=== PATIENT | male | born 1980 | race Two or more races ===

== ENCOUNTER 2025-04-04 14:29 | Emergency (ER) | payer BC, SELFPAY ==
[2025-04-04 14:30] VITALS: BMI 44.4
--- NOTE | 2025-04-04 15:40 | XR_ITS ---
Examination: CT abdomen and pelvis without contrast. Coronal 3-D reconstructions. Sagittal 2-D reconstructions. Date and time of exam: 04/04/2025 at 3:59 p.m. INDICATION: Generalized abdominal pain for 3 weeks COMPARISON: CT abdomen and pelvis with contrast 01/27/2021 CTDI: vol (mGy): 17.5 DLP: (mGycm): 1214 Technique: Axial images of the abdomen have been obtained, 3 mm slice thickness Intravenous contrast material has not been administered. Low dose protocols were performed. One or more of the following dose reduction techniques were used; automated exposure control, adjustment of the mA and/or KV according to patient size, use of iterative reconstruction technique. Findings: Lack of intravenous contrast limits evaluation of solid organs, vasculature, and lymph nodes. Lower thorax: No pleural effusions. No airspace consolidation. Heart size is within normal limits. Partially imaged right-sided gynecomastia. Liver: Normal variant Pawel lobe morphology. Otherwise, smooth margins and homogeneous attenuation. Biliary system: No calcified gallstones or findings concerning for acute cholecystitis or biliary ductal obstruction. Spleen: Within normal limits of size. No discrete mass. Pancreas: No contour deforming mass or overt main pancreatic duct dilatation. No evidence for acute inflammation. Adrenal glands: No significant findings. Kidneys: No contour-deforming solid mass. No right renal or ureteral calculi or hydronephrosis. 2 or 3 punctate approximately 2 mm sized calculi are present in the inferior pole of the left kidney. No left ureteral calculi or hydronephrosis. Bladder: Suboptimal assessment due to under distention but no calculus is seen. Pelvic organs: No masses or acute findings. Very mild prostate calcification is noted. Bowel/Peritoneal cavity: Limited assessment without IV and oral contrast as well as segments of underdistention. No contour deforming mass. No obstructive or acute inflammatory changes. Colonic diverticulosis without evidence for acute diverticulitis. No evidence for acute appendicitis. No ascites or free air. No concerning peritoneal thickening. Lymph nodes/retroperitoneum: No pathologically enlarged lymph nodes or other masses. No hematoma or other abnormal collections. Vessels: No abdominal aortic aneurysm. Abdominal/Pelvic wall: Very small fat-containing direct right inguinal hernia. Minimal fat-containing umbilical hernia noted. No acute complications. Musculoskeletal: Multifocal degenerative changes with otherwise no evidence for recent fracture or aggressive lesion. Prominent dextroscoliosis of the partially imaged thoracic spine. IMPRESSION: Negative noncontrast CT for acute abnormality in the abdomen and pelvis. Nonobstructive punctate left renal calculi. Colonic diverticulosis without evidence for acute diverticulitis. No evidence for acute appendicitis.
--- NOTE | 2025-04-04 15:41 | PD.EDRME ---
Rapid Medical Screening Exam RME Arrival date/time: 04/04/25 14:29 44-year-old male with a history of type 2 diabetes, hypertension, presents to the emergency room with a chief complaint of blood in his stool x 3 weeks I have greeted and performed a focused initial assessment of this patient. A comprehensive ED assessment and evaluation of the patient, analysis of all test results, and completion of the medical decision making process will be conducted by additional ED providers. Chief Complaint: Nausea/Vomiting/Diarrhea Time Seen by Provider: 04/04/25 15:11 Vital signs reviewed by provider: Yes Exam: Soft nontender abdomen Clear bilateral lung sounds Clinical Impression: GI bleed/gastroenteritis/anemia
[2025-04-04 16:02] LABS: Basophils # (Auto) 0.1 Thou/mm3 (0.0-0.2); Basophils % (Auto) 1 % (0-2.5); Eosinophils # (Auto) 0.1 Thou/mm3 (0.0-0.5); Eosinophils % (Auto) 1 % (0-10); Hematocrit 48.7 % (41.0-53.0); Hemoglobin 16.0 g/dL (13.5-16.0); Immature Granulocytes Auto 0.07 Thou/mm3 (0.00-0.00); Lymphocytes # (Auto) 3.0 Thou/mm3 (1.0-4.8); Lymphocytes % (Auto) 35 % (10-50); Mean Corpuscular HGB Conc 32.9 g/dl (31.0-37.0); Mean Corpuscular Hemoglobin 29.3 pg (25.0-35.0); Mean Corpuscular Volume 89 fL (80-100); Monocytes # (Auto) 0.7 Thou/mm3 (0.0-0.8); Monocytes % (Auto) 8 % (0-12); Neutrophils # (Auto) 4.7 Thou/mm3 (1.8-7.7); Neutrophils % (Auto) 55 % (37-80); Nucleated Red Blood Cell # 0.00 Thou/mm3 (0.00-0.00); Nucleated Red Blood Cell % 0 /100 WBC (0); Platelet Count 261 Thou/mm3 (140-440); RDW Standard Deviation 44.2 fL (35.1-43.9); Red Blood Count 5.47 Miln/mm3 (4.50-5.90); White Blood Count 8.6 Thou/mm3 (3.8-10.6)
[2025-04-04 16:05] LABS: Collection Type, Urine Clean Catch; WBC,Urine 0 /hpf (0-5)
[2025-04-04 16:11] VITALS: BP 136/86; PULSE 79; RESP 18; TEMP 36.6; O2SAT 98
[2025-04-04 16:14] LABS: INR 1.0 (0.9-1.3); Partial Thromboplastin Time 28.8 Seconds (22.0-36.0); Prothrombin Time 10.4 Seconds (9.0-12.2)
[2025-04-04 16:16] LABS: Bacteria,Urine Rare; Bilirubin,Urine Negative (Negative); Blood,Urine Negative (Negative); Clarity,Urine Clear (Clear/Hazy); Color,Urine Lt-Yellow (Lt Yel-Yel); Glucose, Urine 4+ (Negative); Ketones,Urine Negative (Negative); Leukocyte Esterase,Urine Negative (Negative); Nitrite,Urine Negative (Negative); PH,Urine 6.0 (5.0-7.0); Protein,Urine Negative (Neg - Trace); RBC,Urine 2 /hpf (0-3); Specific Gravity,Urine 1.048 (1.001-1.035); Squamous Epithelial Cell,Urine < 1 /hpf (0-5); Urobilinogen,Urine Negative mg/dL (0.0-1.0)
[2025-04-04 16:24] LABS: Alanine Aminotransferase 11 U/L (10-49); Albumin, Serum 4.7 gm/dL (3.5-5.0); Albumin/Globulin Ratio 2.4 (1.2-2.2); Alkaline Phosphatase 88 U/L (46-116); Anion Gap 9 (7-16); Aspartate Amino Transferase 15 U/L (0-34); BUN/Creatinine Ratio 13 Ratio (12-20); Bilirubin,Total 0.4 mg/dL (0.3-1.2); Blood Urea Nitrogen 10 mg/dL (9-23); Calcium 9.2 mg/dL (8.3-10.6); Calcium (Corrected) 9.2 mg/dL (8.5-10.1); Carbon Dioxide 25.1 mMol/L (20.0-31.0); Chloride 107 mMol/L (98-107); Creatinine (Component) 0.8 mg/dL (0.6-1.3); Estimated Creatinine Clearance 150.0 mL/min (>60); Globulin 2.0 gm/dL (2.3-3.5); Glucose 165 mg/dL (74-106); Lipase 48 U/L (12-53); Osmolality,Calculated 284 (275-295); Potassium 4.2 mMol/L (3.4-5.1); Sodium 141 mMol/L (136-145); Total Protein 6.7 gm/dL (5.7-8.2); eGFR > 60 See Note
[2025-04-04 17:44] VITALS: BP 125/89; PULSE 78; RESP 16; TEMP 36.6; O2SAT 99
--- NOTE | 2025-04-04 18:24 | PD.EDNV ---
Nausea/Vomit./Diarrhea-RME/HPI General Chief complaint: Nausea/Vomiting/Diarrhea Stated complaint: DIARRHEA x 3 WEEKS, SENT BY PMD Time Seen by Provider: 04/04/25 15:11 Arrival date/time: 04/04/25 14:29 44-year-old male patient with significant history of hypertension, diabetes mellitus, currently taking metformin, glipizide, came in for evaluation regarding diarrhea. Patient is having diarrhea for the last 3 weeks, at least 4 times per day nonbloody, associated with abdominal discomfort. Patient denies any fever denies any vomiting denies any other complaints. No medication was taken prior to ER visit. RME / HPI RME / HPI Narrative: 04/04/25 14:29 44-year-old male with a history of type 2 diabetes, hypertension, presents to the emergency room with a chief complaint of blood in his stool x 3 weeks I have greeted and performed a focused initial assessment of this patient. A comprehensive ED assessment and evaluation of the patient, analysis of all test results, and completion of the medical decision making process will be conducted by additional ED providers. Exam: Soft nontender abdomen Clear bilateral lung sounds Impression: GI bleed/gastroenteritis/anemia Related Data Home Medications ?Medication ?Instructions ?Recorded ?Confirmed glipizide 5 mg tablet 5 mg PO BID 03/29/19 06/01/21 metformin 1,000 mg tablet 1,000 mg PO BID 03/29/19 06/01/21 losartan 50 mg tablet 50 mg PO QDAY 06/01/21 06/01/21 semaglutide 1 mg/dose (4 mg/3 mL) 1 mg subcut 06/01/21 subcutaneous pen injector (Ozempic) Previous Rx's ?Medication ?Instructions ?Recorded azithromycin 500 mg tablet See Rx Instructions PO .COMPLEX #3 04/04/25 (Zithromax) tabs Allergies Allergy/AdvReac Type Severity Reaction Status Date / Time No Known Allergies Allergy Verified 04/04/25 14:32 Review of Systems Review of Systems Narrative Review of Systems: Review of system reviewed and within normal limits except mentioned in HPI ED Exam Narrative Physical exam: VITAL SIGNS: Reviewed. GENERAL APPEARANCE: Alert and interactive, follows commands, no acute distress, HEAD AND FACE: Non-traumatic. ENT: PERRL, pink conjunctivitis, eyelid no trauma, Mucous membrane moist. NECK: Supple, nontender, no nuchal rigidity. CHEST: No tenderness, no crepitus, no paradoxical movement, no retractions. LUNGS: Clear, well ventilated, symmetric, no rales, no wheezing, no ronchi, no stridor, good breath sounds bilaterally. HEART: Regular rate, regular rhythm, no murmur, no gallops. ABDOMEN: Soft, positive bowel sounds, nondistended, no guarding, nontender, no rebound, no masses, RECTAL: Deferred. GENITAL: Deferred. NEUROLOGICAL: Gross motor function intact sensory function intact, Appropriate for age. MUSCULOSKELETAL: low back nontender, full range of motion. EXTREMITIES: Nontender, full range of motion. SKIN: Color pink, dry, no rash, no lacerations, no abrasions, no contusions. LYMPHATICS: Deferred. Course Quality Measures none Orders Category Date Time Status CT abdomen pelvis wo con Stat Exams 04/04/25 15:40 Completed CBC Stat Lab 04/04/25 15:47 Completed CMP [Comprehensive Metabolic Panel] Stat Lab 04/04/25 15:47 Completed Lipase Stat Lab 04/04/25 15:47 Completed PT [Prothrombin Time with INR] Stat Lab 04/04/25 15:47 Completed PTT [Partial Thromboplastin Time] Stat Lab 04/04/25 15:47 Completed Type and Screen Stat Lab 04/04/25 15:47 Completed UA [Urinalysis] Stat Lab 04/04/25 15:55 Completed Urine Culture Stat Lab 04/04/25 15:55 Received Azithromycin Po [Zithromax PO] Med 04/04/25 18:24 Once 500 mg PO X1 ONE Vital Signs Vital signs: Vital Signs Temperature 98 F 04/04/25 16:11 Pulse Rate 79 04/04/25 16:11 Respiratory Rate 18 04/04/25 16:11 Blood Pressure 136/86 H 04/04/25 16:11 Pulse Oximetry (%) 98 04/04/25 16:11 Oxygen Delivery Method Room Air 04/04/25 16:11 Nausea/Vomiting/Diarrhea MDM Narrative MDM Narrative:: 44-year-old male patient with significant history of hypertension, diabetes mellitus, currently taking metformin, glipizide, came in for evaluation regarding diarrhea. Patient is having diarrhea for the last 3 weeks, at least 4 times per day nonbloody, associated with abdominal discomfort. Patient denies any fever denies any vomiting denies any other complaints. No medication was taken prior to ER visit. Patient's workup today all came back unremarkable including CT scan of the abdomen and pelvis. Patient will be started on azithromycin for gastroenteritis. I advised the patient to follow-up closely with PCP if the antibiotic will not work. Patient probably is having diarrhea related to metformin. Currently patient stable for discharge home. Patient appears nontoxic and hemodynamically stable .Decision to discharge the patient. The patient/family was given an opportunity to ask questions and understood their discharge instructions. Discharge instructions specifically included follow up provider and time frame, current and/or new medications and possible side effects, indications for sooner follow up or return to the emergency department, and the expected course of current diagnosis. Patient reports feeling better as well and giving evidence of significant clinical improvement, I believe patient is now a candidate for discharge. Patient data External records reviewed:: None Clinical information provided by:: patient Social determinants that could affect healthcare access:: none Patient has the following chronic illnesses:: Diabetes hypertension How is presenting disease/condition affected by chronic disease/condition?: exacerbated by Evaluation data The following diagnostics were reviewed and interpreted by me:: lab results and radiology exam(s) Lab and/or radiology exams considered but not ordered:: None Interpretation Summary: See MDM Medications / Prescriptions Medications / Prescriptions considered but not ordered:: None Medication administrations:: Medication Administration History Discontinued Medications Azithromycin (Azithromycin 250 Mg Tablet) 500 mg PO X1 ONE Stop: 04/04/25 18:25 Zithromax Consultations Consultation(s) initiated? (list below): No Diagnosis Nausea Differential Diagnosis: food poisoning, gastroenteritis and dehydration Most likely diagnosis given after review of the tests above:: Gastroenteritis Admission Indicated Admission indicated?: not indicated Admission Request Was there a request for admission?: No Disposition Plan Disposition Plan: Discharge Discharge Attestation Discharge Attestation: The patient and all family members were given an opportunity to ask questions and understood the discharge instructions. Discharge instructions specifically effects, indications for sooner follow up or return to the emergency department, and the expected course of current diagnosis. Patient condition: Stable Discharge Plan Plan Patient Disposition: HOME (Self Care) Discharge Disposition comment: Stable Prescriptions/Referrals Prescriptions/Med Rec: New azithromycin [Zithromax] 500 mg tablet See Rx Instructions .ROUTE .COMPLEX Qty: 3 0RF Rx Instructions: For 500 mg dose pack: take 500 mg once daily for 3 days No Action metformin 1,000 mg tablet 1,000 mg PO BID glipizide 5 mg tablet 5 mg PO BID losartan 50 mg tablet 50 mg PO QDAY Patient Comments: take 1 tablet by mouth once daily Ozempic 1 mg/dose (4 mg/3 mL) pen injector 1 mg SUBCUT Referrals: Elodia Cortez MD [Primary Care Provider, Family Practice] - In 1 week Problem List Clinical Impression: Gastroenteritis Patient/Caregiver Discharge Instructions Discharge Activity: activity as tolerated Education Materials: ED Gastroenteritis, Noninfectious Additional Instructions: Thank you for the opportunity for serving you today. You are stable for discharged . You are advised to: Follow-up with your PCP in 1 to 2 days Return to ED for worsening of symptoms Increase oral fluids Take medication as prescribed Print Language: Estonian Stand Alone Forms: Radha Award Info., Patient Portal Info Letter
[2025-04-04] MEDS: AZITHROMYCIN 250 MG TABLET 500 MG PO (18:29)
== END 2025-04-04 18:32 | disposition home or self-care (01) ==
PROVIDERS: Nurse Practitioner Family; Emergency Provider Nurse Practitioner Family; PCP Family Medicine
DX: K52.9 Noninfective gastroenteritis and colitis, unspecified (principal)
CPT/HCPCS: 36415; 74176; 80053; 81001; 83690; 85025; 85610; 85730; 86850; 86900; 86901; 87086; 99283; A9270